=== PATIENT | male | born 1950 | race Caucasian/White ===

== ENCOUNTER → 2017-05-25 | Outpatient (CLI) | payer OTHER, BC ==
[~2017-05-25] MED LIST: CHOL1000 PO; CHOL200027 PO; FOLI1TAB7 PO; FRCT/ PO; GLIP-199 PO; KETO10TA PO; LEVO25TA5 PO; LISI-461 PO; LPT10 PO; METF1000 PO; MULTTAB58 PO; OMEGCAP2 PO; OXYC-57 PO; SITA50TA3 PO; [UNRECOGNIZED DRUG - CODE] PO; [UNRECOGNIZED DRUG - CODE] PO
[2017-05-25 15:47] LABS: BASO % 0.8 %; BASO ABS # 0.05 K/uL (0-0.2); COMPLETE YES; EOS % 2.8 %; IG% 0.2 %; LYMPH % 37.2 %; LYMPH ABS # 2.23 K/uL (1.2-3.4); MEAN CELL VOLUME 88.9 fL (80-100); MEAN CORPUSCULAR HEMOGLOBIN 31.5 pg (25-34); MEAN CORPUSCULAR HGB CONC 35.5 g/dl (32-36); MEAN PLATELET VOLUME 9.8 fL (7.4-10.4); MONO % 10.5 %; NEUT % 48.5 %; PLATELET COUNT 209 K/uL (130-400); RED BLOOD COUNT 4.95 M/uL (4.7-6.1); WHITE BLOOD COUNT 5.99 K/uL (4.8-10.8)
[2017-05-25 16:17] LABS: BLOOD UREA NITROGEN 20 mg/dl (7-18); BUN/CREATININE RATIO 16.7 (10-20); CALCIUM 9.7 mg/dl (8.5-10.1); CARBON DIOXIDE 31 mmol/L (21-32); CHLORIDE 102 mmol/L (98-107); GLUCOSE 125 mg/dl (70-99); POTASSIUM 4.3 mmol/L (3.5-5.1); SODIUM 137 mmol/L (136-145)
== END | disposition home or self-care (01) ==
LOC: C.CPL 15:04
PROVIDERS: ATTEND Orthopaedic Surgery
DX: M75.122 Complete rotator cuff tear or rupture of left shoulder, not specified as traumatic (principal); Z01.812 Encounter for preprocedural laboratory examination; Z01.810 Encounter for preprocedural cardiovascular examination

== ENCOUNTER → 2017-06-02 | Day surgery (SDC) | payer OTHER, BC ==
[2017-05-25 15:31] VITALS: Ht 181.6 cm; Wt 114.5 kg
[~2017-06-02] VITALS: Ht 181.6 cm; Wt 114.5 kg
[~2017-06-02] MED LIST changes: +ACETAMINOPHEN 1000 MG/100 ML IV IV ONE; +ATROPINE SULFATE 0.1 MG/ML 5ML SYR IV PRN; +BUPIVACAINE/EPINEPHRINE 0.25% 10 ML VIAL ONE; +CEFAZOLIN 2000 MG/60 ML D5W IV SCH; -CHOL200027 PO; +DEXAMETHASONE SOD INJ 4 MG/ML VIAL ONE; +EpHEDrine SULFATE 50MG/5ML SYR ONE; +EpHEDrine SULFATE INJ 50 MG/ML AMP IV PRN; +EpINEphrine INJ 1MG/ML AMP 1 MG/ML AMP ONE; +FENTANYL CITRATE INJ 50 MCG/1 ML 2 ML VIAL IV PRN; +FENTANYL CITRATE INJ 50 MCG/1 ML 2 ML VIAL ONE; -FRCT/ PO; +HYDROmorphone INJ 1 MG/ML SYR IV PRN; +LIDOCAINE HCL 1% MPF 2 ML VIAL ONE; +LIDOCAINE HCL 2% 2 ML VIAL (20MG/ML) ONE; +MIDAZOLAM HCL 1 MG/ML 2ML VIAL ONE; -OMEGCAP2 PO; +ONDANSETRON INJ 2 MG/ML 2 ML VIAL IV PRN; +ONDANSETRON INJ 2 MG/ML 2 ML VIAL ONE; +OXYCODONE/ACETAMINOPHEN 5-325 TAB PO PRN; +PROMETHAZINE HCL INJ 12.5 MG in SODIUM CHLORIDE 0.9% 50ML 50 ML IV PRN; +PROPOFOL IV EMULSION 10 MG/ML 20 ML VIAL IV ONE; +ROPIVACAINE 0.5% 5 MG/ML 30 ML VIAL ONE; +SODIUM CHLORIDE 0.9% 1000ML 1,000 ML IV SCH; -[UNRECOGNIZED DRUG - CODE] PO
[2017-06-02] MEDS: LACTATED RINGER'S 1000ML 1,000 ML IV SCH ×2 (09:00→11:52)
--- NOTE | 2017-06-02 09:42 | History & Physical Bridge - [place] ---
H&P Re-Evaluation Bridge Note: I have examined the patient, reviewed the History & Physical and in the interval since the performance of the History & Physical I have noted the following changes of clinical significance: No changes noted
--- NOTE | 2017-06-02 11:21 | [facility] Post Operative Brief Note ---
Immediate Operative Summary Operative Date Jun 02, 2017. Pre-Operative Diagnosis Left Shoulder Full Thickness Rotator Cuff Tear Post-Operative Diagnosis Same Procedure(s) Performed Left Shoulder Arthroscopy, Distal Clavicle Resection, Small Rotator Cuff Repair and Acromioplasty Surgeon Dr. Jerome Avila Mri Specialist Surgeon(s) Jatin Oneill PA-C Estimated Blood Loss 5 cc Findings as above Specimens None Complication(s) None Disposition Recovery Room / PACU
--- NOTE | 2017-06-02 11:23 | Discharge Instructions-SurgCtr ---
Discharge Instructions Date of Service Jun 02, 2017. Visit Reason for Visit: Left Shoulder Full Thickenss Rotator Cuff Tear Discharge Discharge Diagnosis / Problem: SAME ABOVE Discharge Goals Goal(s): Decrease discomfort, Improve function Medications Stopped Medications Name(s): METFORMIN STOPPED 2 DAYS AGO Restart Stopped Medication(s): MAY RESTART 06/02/2017 Activity Recommendations Activity Limitations: as noted below Lifting Limitations: until after follow-up appointment Exercise/Sports Limitations: until after follow-up appointment Shower/Bathe: tomorrow Anesthesia . Post Anesthesia Instructions: If you have had General Anesthesia or IV Sedation: * Do not drive today. * Resume driving when surgeon permits. * Do not make important decisions or sign legal documents today. * Call surgeon for: 1. Temperature elevations greater than 101 degrees F. 2. Uncontrollable pain. 3. Excessive bleeding. 4. Persistent nausea and vomiting. 5. Medication intolerance (nausea, vomiting or rash). * For nausea and vomiting use only clear liquids such as: tea, soda, bouillon until nausea subsides, then gradually increase diet as tolerated. * If you have any concerns or questions, call your surgeon's office. If physician is unavailable and it is an emergency, call 911 or go to the nearest emergency room. . Instructions / Follow-Up Instructions / Follow-Up MEDICATIONS: * Resume previous medications unless instructed otherwise by your surgeon. * Always take pain medication on a full stomach or with food to avoid upset stomach. * Do not drink alcohol or drive while taking narcotics. * Ibuprofen or Tylenol may be taken if narcotic not needed. SPECIAL CARE INSTRUCTIONS: __ None _X_ Keep extremity elevated and iced x 48 hours; apply ice 20-30 minutes 8-10 times/day. May remove at night. _X_ Sling (MAY REMOVE AFTER 48 HOURS ONLY TO SHOWER AND FOR THERAPY) _X_24 hrs/day __ Remove at night __ Shoulder Immobilizer __ 24 hrs/day __ Remove at night _X_ Dressing __ Maintain until seen in office, may shower with plastic over site _X_ Remove dressings in 24-48 hours and then may shower _X_ Cover incisions with band-aids after showering __ Do not remove steri-strips Call physician if chills or temperature rises above 102 degrees or pain unrelieved by prescribed pain medications at . . Diet Recommendations Home Diet: no limitations Fluid Restriction: 1000 ml (4 cups) Procedures Procedures Performed: Left Shoulder Arthroscopy, Distal Clavicle Resection, Small Rotator Cuff Repair and Acromioplasty Pending Studies Studies pending at discharge: no Work Instructions Return To Work: after follow-up Lifting Limitations: NO LIFTING WITH RIGHT ARM Medical Emergencies . Who to Call and When: Medical Emergencies: If at any time you feel your situation is an emergency, please call 911 immediately. . Non-Emergent Contact Non-Emergency issues call your: Primary Care Provider Call Non-Emergent contact if: you have a fever, temperature is above 101.5 . . "Provider Documentation" section prepared by Nguyễn Oneill. .
--- NOTE | 2017-06-02 11:39 | OPERATIVE REPORT ---
DATE OF OPERATION: 06/02/2017 PREOPERATIVE DIAGNOSIS: Severe external impingement with small rotator cuff tear and AC joint arthritis. POSTOPERATIVE DIAGNOSIS: Same. PROCEDURE: Left shoulder diagnostic arthroscopy with limited debridement, distal clavicle resection, acromioplasty and small rotator cuff repair. SURGEON: Dr. Brett Avila. INFECTIOUS DISEASE TECHNICIAN: Amanuel Oneill PA-C, whose assistance was necessary for positioning of the arm and helping with arthroscopic instrumentation. ANESTHESIA: General with a left interscalene nerve block. COMPLICATIONS: None. CONDITION: Stable to PACU. INDICATIONS: Earl is a pleasant 66-year-old male who has been having a 6-month history of left shoulder pain. He had an MRI by his primary care physician which showed a small full thickness rotator cuff tear. After failing extensive conservative treatment, he elected to proceed with arthroscopy. OPERATION AND FINDINGS: On 06/02/2017, he arrived at [facility] for the above procedure. He was seen in the preoperative holding area and the operative extremity was identified and signed. He was given a preoperative antibiotic and a left interscalene nerve block. He was taken back to the operating room, laid on the table in supine position and put under general anesthesia. He was then put into the beachchair position. The left shoulder was prepped and draped in sterile fashion. Time-out was done and the patient and operative extremity was properly identified. A scope was introduced in the posterior portal. Diagnostic arthroscopy showed no cartilage damage to the humeral head or the glenoid. There was a little fraying of the anterior labrum. The biceps tendon was intact and went through a biceps geovanna mechanism, but the geovanna was frayed. There was a little fraying of the far anterior supraspinatus on the articular side. The infraspinatus and teres minor and subscapularis were all checked and intact. An anterior portal was made. A shaver was used to do a limited debridement of the intraarticular structures. The biceps tendon was pulled into the joint and there was no significant pathology. The scope was then put into the subacromial space. A lateral portal was made. A shaver was used to do a complete subacromial and subdeltoid bursectomy. An ablator was used to tease the coracoacromial ligament off the undersurface of the acromion and a 5-0 rahul was used to complete an acromioplasty of a very large Bigliani type 3 acromion. A shaver was used to remove any excess debris and attention was turned to the rotator cuff. There was a small high grade partial thickness tear of the far anterior lateral supraspinatus. It involved about 90% of the bursal side of the tendon. An additional anterolateral portal was made and Jaquelin cannulas was placed. The tuberosity was prepared with a ring curette. The rotator cuff was then fixed with an Arthrex modified SpeedBridge configuration using a single 4.75 mm BioComposite SwiveLock suture anchor loaded with FiberTapes on the medial row. The tapes were passed through the tendon separately and pulled down to a single lateral row SwiveLock suture anchor. This gave a nice repair. Multiple pictures were taken. Attention was then turned to the distal clavicle. Through an anterior portal, a shaver and ablator were used to skeletonize the distal clavicle. A 5-0 rahul was then used to resect the distal 5 mm from the clavicle. Complete resection was checked under direct visualization. A shaver was used to remove any excess debris in the subacromial space and no additional pathology was identified. The scope was placed back into the glenohumeral joint. The articular margin of the rotator cuff looked okay. The biceps tendon was pulled into the joint and was able to move freely. Arthroscopic instruments were removed from the shoulder. Portal sites were closed with 3-0 nylon. He was then placed in a soft dressing and an abduction arm sling. He was then extubated, transferred to a [facility] and taken to the postanesthesia care unit in stable condition. He tolerated the procedure well. I attest to the content of the Intraoperative Record and any orders documented therein. Any exception s are noted below.
[2017-06-02 12:01] VITALS: TEMP 36.6
--- NOTE | 2017-06-02 12:20 | Anesthesia Progress Nt - [facility] ---
Anesthesia Post Op Note Date & Time Jun 02, 2017 at 12:20 Vital Signs Pain Intensity: 0 Vital Signs Past 12 Hours Date Time Temp Pulse Resp B/P (MAP) Pulse Ox O2 Delivery O2 Flow Rate FiO2 06/02/17 12:01 36.6 76 18 127/82 (97) 95 Room Air 06/02/17 11:52 36.5 77 10 06/02/17 11:52 76 10 94 06/02/17 11:51 117/87 06/02/17 11:47 76 15 06/02/17 11:47 75 15 99 06/02/17 11:45 116/81 06/02/17 11:42 80 14 06/02/17 11:42 80 14 97 06/02/17 11:40 121/70 06/02/17 11:37 76 15 06/02/17 11:37 76 15 97 06/02/17 11:36 116/76 06/02/17 11:32 75 15 98 06/02/17 11:32 78 15 06/02/17 11:30 131/84 06/02/17 11:27 77 15 06/02/17 11:27 77 15 99 06/02/17 11:25 131/88 06/02/17 11:24 135/86 06/02/17 11:23 36.4 78 16 128/104 100 Mask 6 06/02/17 10:17 0 06/02/17 10:11 61 4 98 06/02/17 10:11 60 4 98 06/02/17 10:10 113/74 06/02/17 10:06 64 96 06/02/17 10:06 64 06/02/17 10:05 113/76 06/02/17 10:02 61 0 93 06/02/17 10:02 63 7 96 06/02/17 10:00 133/89 06/02/17 09:52 0 06/02/17 09:47 0 06/02/17 09:47 0 06/02/17 09:37 0 06/02/17 09:32 0 06/02/17 09:22 0 06/02/17 09:22 0 06/02/17 09:17 0 06/02/17 09:07 0 06/02/17 09:07 0 06/02/17 08:28 36.5 71 20 124/86 (99) 96 Room Air Notes Mental Status: alert / awake / arousable, participated in evaluation Pt Amnestic to Procedure: Yes Nausea / Vomiting: adequately controlled Pain: adequately controlled Airway Patency, RR, SpO2: stable & adequate BP & HR: stable & adequate Hydration State: stable & adequate Anesthetic Complications: no major complications apparent Pt doing well. Pain well controlled with ISB. VSS
[2017-06-02 12:24] VITALS: BP 128/84; PULSE 70; O2SAT 96
== END | disposition home or self-care (01) ==
LOC: X.SURG 07:55
PROVIDERS: ATTEND Orthopaedic Surgery
DX: M75.102 Unspecified rotator cuff tear or rupture of left shoulder, not specified as traumatic (principal); E78.5 Hyperlipidemia, unspecified; Z83.3 Family history of diabetes mellitus; G47.39 Other sleep apnea